=== PATIENT | female | born 1960 | race Caucasian/White ===

== ENCOUNTER 2018-10-31 13:20 | Outpatient (CLI) | payer OTHER | END 2018-10-31 13:21 | disposition home or self-care (01) | LOC: BICMAMMO 13:20 | PROVIDERS: ATTEND Family Medicine | DX: Z12.31 Encounter for screening mammogram for malignant neoplasm of breast (principal) | CPT/HCPCS: 77063; 77067 ==

== ENCOUNTER 2019-06-05 14:00 | Outpatient (CLI) | payer OTHER | END 2019-06-05 14:01 | disposition home or self-care (01) | LOC: DTY/OP 14:00 | PROVIDERS: ATTEND Surgery | DX: E66.01 Morbid (severe) obesity due to excess calories (principal) | CPT/HCPCS: 97802 ==

== ENCOUNTER 2019-07-02 12:44 | Outpatient (CLI) | payer OTHER | END 2019-07-02 12:45 | disposition home or self-care (01) | LOC: DTY/OP 12:44 | PROVIDERS: ATTEND Internal Medicine | DX: E66.01 Morbid (severe) obesity due to excess calories (principal) | CPT/HCPCS: 97802 ==

== ENCOUNTER 2019-07-17 08:23 | Outpatient (CLI) | payer OTHER ==
--- NOTE | 2019-07-17 09:40 | BD ---
DEXA SCAN: DATE: 07/17/2019. PROVIDED CLINICAL HISTORY: Postmenopausal screening. FINDINGS: Lumbar Spine: BMD (g/cm2) L1 0.916 T-Score: -0.7 L2 1.106 T-Score: 0.7 L3 1.100 T-Score: 0.1 L4 1.079 T-Score: 0.2 L1-L4 1.056 T-Score: 0.1 Femoral Neck: 0.710 T-Score: -1.2 Total Femur: 0.961 T-Score: 0.2 Impression: Calculated bone mineral density meets WHO criteria for osteopenia in the left femoral neck and places the patient at increased risk for a fracture. POS: TPC
== END 2019-07-17 08:24 | disposition home or self-care (01) ==
LOC: BICMAMMO 08:23
PROVIDERS: ATTEND Internal Medicine Gastroenterology
DX: Z13.820 Encounter for screening for osteoporosis (principal); K90.0 Celiac disease; K52.9 Noninfective gastroenteritis and colitis, unspecified; E66.9 Obesity, unspecified; M85.852 Other specified disorders of bone density and structure, left thigh
CPT/HCPCS: 77080

== ENCOUNTER 2019-08-04 10:46 | Outpatient (CLI) | payer OTHER | END 2019-08-04 10:47 | disposition home or self-care (01) | LOC: DTY/OP 10:46 | PROVIDERS: ATTEND Internal Medicine | DX: E66.01 Morbid (severe) obesity due to excess calories (principal) | CPT/HCPCS: 97802 ==

== ENCOUNTER 2019-09-09 10:15 | Outpatient (CLI) | payer OTHER | END 2019-09-09 10:16 | disposition home or self-care (01) | LOC: DTY/OP 10:15 | PROVIDERS: ATTEND Internal Medicine | DX: E66.01 Morbid (severe) obesity due to excess calories (principal) | CPT/HCPCS: 97802 ==

== ENCOUNTER 2019-09-29 11:30 | Inpatient (IN) | payer OTHER ==
[2019-09-29 11:29] VITALS: BMI 36.4
[2019-10-01] MEDS ORDERED: PROPOFOL 200 MG/20 ML VIAL ONE (10:31)
[2019-10-01] MEDS ORDERED: Glycopyrrolate 0.2 MG/ML 5 ML SYRINGE ONE (10:31)
[2019-10-01] MEDS ORDERED: Rocuronium Bromide 10 MG/ML (10ML VIAL) ONE (10:31)
[2019-10-01] MEDS ORDERED: Metoclopramide HCl 10 MG/2 ML VIAL ONE (10:31)
[2019-10-01] MEDS ORDERED: Esmolol 100 MG/10 ML VIAL ONE (10:31)
[2019-10-01] MEDS ORDERED: Ketorolac Tromethamine 30 MG/ML VIAL ONE (10:31)
[2019-10-01] MEDS ORDERED: Ondansetron PF 4 MG/2 ML Vial ONE (10:31)
[2019-10-01] MEDS ORDERED: Lidocaine 1% PF 5 ML VIAL ONE (10:31)
[2019-10-01] MEDS ORDERED: Dexamethasone 20 MG/5 ML VIAL ONE (10:31)
[2019-10-01] MEDS ORDERED: Heparin 5,000 UNITS/ML VIAL ONE (11:06)
[2019-10-01] MEDS ORDERED: Bupivacaine PF 0.5% 30 ML VIAL ONE (12:20)
[2019-10-01] MEDS ORDERED: Famotidine/PF 20 mg/2ml Vial ONE (12:25)
[2019-10-01] MEDS ORDERED: Fentanyl 100 MCG/2 ML VIAL ONE ×2 (12:25→16:26)
[2019-10-01] MEDS ORDERED: hydrALAZINE 20 MG/ML VIAL ONE (13:39)
[2019-10-01] MEDS ORDERED: Labetalol HCl 100 MG/20 ML VIAL ONE (15:29)
[2019-10-01] MEDS ORDERED: Meperidine HCl/PF 25 MG/ML VIAL SLOW IVP PRN (15:33)
[2019-10-01] MEDS ORDERED: Ondansetron HCl/PF 4 MG/2 ML Vial IVP PRN (15:33)
[2019-10-01] MEDS ORDERED: diphenhydrAMINE 50 MG/ML VIAL IVP PRN ×2 (16:08→17:18)
[2019-10-01] MEDS ORDERED: Ondansetron PF 4 MG/2 ML Vial IVP PRN ×2 (16:08→17:18)
[2019-10-01] MEDS ORDERED: diphenhydrAMINE 50 MG/ML VIAL IM PRN (16:08)
[2019-10-01] MEDS ORDERED: diphenhydrAMINE 25 MG CAP PO PRN (16:08)
[2019-10-01] MEDS ORDERED: Naloxone HCl 0.4 mg/ml Vial IV PRN (16:08)
[2019-10-01] MEDS ORDERED: Promethazine HCl 25 MG/ML VIAL IM PRN ×2 (16:08→17:18)
[2019-10-01] MEDS ORDERED: fentaNYL Citrate/PF 2,000 MCG in Sodium Chloride 0.9% 60 ML IV PRN (16:08)
[2019-10-01] MEDS ORDERED: Zolpidem Tartrate 5 MG TAB PO PRN (16:08)
[2019-10-01] MEDS ORDERED: Communication Order-Pharmacy FS PRN (16:15)
[2019-10-01] MEDS: Sodium Chloride 0.9% 1,000 ML IV SCH ×2 (17:00→23:42)
[2019-10-01] MEDS ORDERED: hydrALAZINE 20 MG/ML VIAL SLOW IVP PRN (17:18)
[2019-10-01] MEDS ORDERED: Dextrose 50% Abboject 50 ML SYRINGE SLOW IVP PRN (17:18)
[2019-10-01] MEDS ORDERED: Dextrose 5% in Water 1,000 ML IV PRN (17:18)
[2019-10-01] MEDS ORDERED: Hydrocodone-Acetamin 15 ML UDCUP PO PRN (17:18)
[2019-10-01] MEDS: Acetaminophen 1,000 MG in Premix Bag 1 BAG IVPB SCH ×2 (18:31→23:39)
[2019-10-01] MEDS: HumaLOG 300 UNITS/3 ML VIAL SC PRN ×2 (18:39→23:48)
[2019-10-01] MEDS: Enoxaparin Sodium 40 MG/0.4 ML SYRINGE SC SCH (19:59)
--- NOTE | 2019-10-01 20:16 | OP ---
DATE OF PROCEDURE: 10/01/2019 PREOPERATIVE DIAGNOSES: 1. Morbid obesity. 2. Hypertension. 3. Diabetes mellitus type. 4. History of gastroesophageal reflux disease. POSTOPERATIVE DIAGNOSES: 1. Morbid obesity. 2. Hypertension. 3. Diabetes mellitus type. 4. History of gastroesophageal reflux disease. PROCEDURES PERFORMED: 1. Laparoscopic Virgen-en-Y gastric bypass, 100 cm. 2. Esophagogastroduodenoscopy. ANESTHESIA: General. ESTIMATED BLOOD LOSS: 150 mL. COMPLICATIONS: None. SPECIMENS: None. POSTOPERATIVE FINDINGS: Include normal EGD. DESCRIPTION OF PROCEDURE: The operating was taken to the operating room and laid supine on the operating room table. After general anesthetic was obtained, bilateral arms and legs were double strapped to bariatric table. The abdomen was prepped and draped in a sterile fashion. Left subcostal 5 mm Optiview trocar was placed in usual fashion. High-flow pneumoperitoneum was obtained. Left and right abdominal 12 mm ports as well as right subcostal 12 mm port were all placed under direct visualization. A 12 mm port was switched out at the left subcostal port, 5 mm incision made at the xiphoid. Then, Alyson was used to raise the liver off the GE junction. The omentum was split to the transverse colon. The transverse colon mesentery was lifted up exposing the ligament of Treitz, 20 cm was marched distally from the ligament of Treitz and a stapler was fired across the small intestine. The LigaSure was used to form an ischemic blue end on the distal. A distance from this area, 100 cm distal, was then marched. There were some interloop adhesions of the small bowel that had to be taken down sharply in this area without injury, at a distance of 100 cm down, an enterotomy was made and a [id number] anastomosis was performed with the afferent limb proximally and this loop distally. The common enterotomy was closed transversely using a reload of the stapler. The mesentery was closed using an interrupted Vicryl suture, the mesenteric defect. The Virgen limb reached up across the transverse mesocolon under no tension. The patient had previous lap band and lap band removal. There were some adhesions in the upper abdomen. The angle of His was taken down bluntly. Area for transverse staple line was found in the proximal lesser curve of stomach. In this area, a window was made into the lesser sac posteriorly. A laparoscopic stapler was fired transversely across at this point. Gastrotomy was made on the distal greater curve and the anvil for the 25 EEA was brought out through one of the port sites placed up into the stomach. The band passer was used to pass the anvil up just above the above-mentioned staple line. This gastrotomy was then closed using 2 loads of [place] stapler. Pouch was then formed by stapling around the anvil all the way up to the angle of His. The stomach was completely at the top from the remnant stomach. The sharp pin was brought out off the anvil and removed from the abdomen. The Virgen limb was brought up and the end was opened. The 25 EEA stapler base was brought into the left subcostal and passed into the intestine. The sharp pin was brought down on a mesenteric surface of the intestine proximally. This was connected to the anvil from above and the anastomosis was formed. The resultant blue end excess small bowel was stapled off at the level of the gastrojejunostomy. EGD scope was passed through the esophagus, stomach, and into the intestine with no air leakage through the staple line. The staple line was oversewn using Vicryl suture. No ongoing bleeding in the abdomen. The Alyson retractor was removed under direct visualization. All port sites were infiltrated using local anesthetic. All port sites were closed using GraNee needle and 0 Vicryl ties and all ports were removed with no bleeding. All incisions were irrigated copiously including the left subcostal where the small intestine components were removed and all closed using 4-0 Monocryl and Dermabond. The patient was sent to Recovery in stable condition. All instrument counts, needle counts, and lap counts were correct. Job ID: [id number]
[2019-10-02] MEDS: Acetaminophen 1,000 MG in Premix Bag 1 BAG IVPB SCH ×2 (05:10→13:11)
[2019-10-02] MEDS: HumaLOG 300 UNITS/3 ML VIAL SC PRN (05:14)
[2019-10-02 05:39] LABS: #Basophils 0.1 thou/uL (0.0-0.2); #Neutrophils 11.1 thou/uL (1.40-6.50); %Basophils 0.4 % (0.0-1.0); %Eosinophils 0.1 % (0.0-10.0); %Monocytes 6.8 % (0.0-10.0); %Neutrophils 78.6 % (42.0-75.0); Hemoglobin 10.5 g/dL (12.0-16.0); Mean Corpuscular HGB CONC 33.4 g/dL (32.0-36.0); Mean Corpuscular Hemoglobin 31.5 pg (27.0-31.0); Mean Corpuscular Volume 94.3 fL (78.0-98.0); Platelet Count 261 thou/uL (130-400); RBC Distribution Width 11.9 % (11.5-14.5); Red Blood Cell (RBC) Count 3.33 mill/uL (4.20-5.40); White Blood Cell (WBC) Count 14.1 thou/uL (4.8-10.8)
[2019-10-02 06:05] LABS: Anion Gap 13 mmol/L (10-20); BUN (Urea Nitrogen) 14 mg/dL (9.8-20.1); Calc. Creatinine Clearance 93 mL/min (70-130); Calcium 8.1 mg/dL (7.8-10.44); Carbon Dioxide 21 mmol/L (23-31); Chloride 104 mmol/L (98-107); Estimated GFR-MDRD 56; Glucose 302 mg/dL (80-115); Potassium 5.9 mmol/L (3.5-5.1); Sodium 132 mmol/L (136-145)
[2019-10-02] MEDS: Losartan 25 MG TAB PO SCH (08:09)
[2019-10-02] MEDS: Pantoprazole 40 MG VIAL IVP SCH (08:10)
[2019-10-02] MEDS ORDERED: FLU VACC QS2019-20(6MOS UP)/PF 60 MCG/0.5 ML SYRINGE IM ONE (09:00)
[2019-10-02] MEDS ORDERED: Dextrose 50 % In Water 50 ML SYRINGE IV PRN (09:13)
[2019-10-02] MEDS ORDERED: Dextrose 5% in Water 1,000 ML IV PRN (09:13)
--- NOTE | 2019-10-02 09:51 | PDOC.GSPN ---
Surgery Progress Note: Subj - Subjective Narrative: c/o bloating, no nausea, ambulating Surgery Progress Note: Obj - Vital signs Vital signs: Vital Signs - Most Recent Temp Pulse Resp BP Pulse Ox 97.8 F 91 20 94/63 93 L 10/02/19 07:34 10/02/19 07:34 10/02/19 07:34 10/02/19 07:34 10/02/19 07:34 - Physical Exam General: no distress Abdomen: soft, appropriately tender Wound: healing well Surgery Progress Note: Results - Labs Result Diagrams: 10/02/19 04:53 10/02/19 04:53 Lab results: Laboratory Results - last 24 hr 10/01/19 10/02/19 10/02/19 23:49 04:53 04:53 WBC 14.1 H RBC 3.33 L Hgb 10.5 L Hct 31.4 L MCV 94.3 MCH 31.5 H MCHC 33.4 RDW 11.9 Plt Count 261 MPV 9.0 Neutrophils % 78.6 H Lymphocytes % 14.0 L Monocytes % 6.8 Eosinophils % 0.1 Basophils % 0.4 Neutrophils # 11.1 H Lymphocytes # 2.0 Monocytes # 1.0 H Eosinophils # 0.0 Basophils # 0.1 Sodium 132 L Potassium 5.9 H Chloride 104 Carbon Dioxide 21 L Anion Gap 13 BUN 14 Creatinine 1.00 Estimated GFR (MDRD) 56 Glucose 302 H POC Glucose 281 H Calcium 8.1 10/02/19 05:15 WBC RBC Hgb Hct MCV MCH MCHC RDW Plt Count MPV Neutrophils % Lymphocytes % Monocytes % Eosinophils % Basophils % Neutrophils # Lymphocytes # Monocytes # Eosinophils # Basophils # Sodium Potassium Chloride Carbon Dioxide Anion Gap BUN Creatinine Estimated GFR (MDRD) Glucose POC Glucose 300 H Calcium Surgery Progress Note: A/P - Problem (1) Morbid obesity Current Visit: Yes Code(s): E66.01 - MORBID (SEVERE) OBESITY DUE TO EXCESS CALORIES Status: Acute - Plan Plan: POD 1 gastric bypass -recheck K, was 5.9 -DC after lunch today if doing well DC NOTE dx morbid obesity, DM, HTN stable f/u 2 weeks rx's already sent to pharmacy
[2019-10-02] MEDS: Insulin Regular 300 UNITS/3 ML VIAL SC PRN (12:39)
[2019-10-02] MEDS: Sodium Chloride 0.9% 1,000 ML IV SCH ×2 (12:44→20:08)
[2019-10-02] MEDS ORDERED: Calcium Gluc 4.6 MEQ/10 ML (100 MG/ML) SLOW IVP SCH (13:30)
[2019-10-02] MEDS: Enoxaparin Sodium 40 MG/0.4 ML SYRINGE SC SCH (19:22)
[2019-10-02] MEDS: Hydrocodone-Acetamin 15 ML UDCUP PO PRN (20:07)
[2019-10-03] MEDS: Insulin Regular 300 UNITS/3 ML VIAL SC PRN ×2 (00:13→05:55)
[2019-10-03] MEDS: Hydrocodone-Acetamin 15 ML UDCUP PO PRN ×2 (04:00→10:26)
[2019-10-03] MEDS: Sodium Chloride 0.9% 1,000 ML IV SCH (04:01)
[2019-10-03 05:34] LABS: #Basophils 0.1 thou/uL (0.0-0.2); #Eosinphils 0.1 thou/uL (0.0-0.7); #Lymphocytes 3.3 thou/uL (1.20-3.40); #Neutrophils 6.7 thou/uL (1.40-6.50); %Basophils 0.5 % (0.0-1.0); %Eosinophils 1.1 % (0.0-10.0); %Lymphocytes 29.1 % (21.0-51.0); %Neutrophils 60.3 % (42.0-75.0); Hemoglobin 7.5 g/dL (12.0-16.0); Mean Corpuscular HGB CONC 33.6 g/dL (32.0-36.0); Mean Corpuscular Hemoglobin 31.5 pg (27.0-31.0); Mean Corpuscular Volume 93.8 fL (78.0-98.0); Mean Platelet Volume 8.7 fL (7.4-10.4); Platelet Count 196 thou/uL (130-400); Red Blood Cell (RBC) Count 2.37 mill/uL (4.20-5.40); White Blood Cell (WBC) Count 11.1 thou/uL (4.8-10.8)
[2019-10-03] MEDS: Pantoprazole 40 MG VIAL IVP SCH (08:14)
[2019-10-03] MEDS: Losartan 25 MG TAB PO SCH (08:17)
[2019-10-03 14:29] LABS: Hemoglobin 7.6 g/dL (12.0-16.0)
[2019-10-03 15:22] VITALS: BP 103/71; TEMP 99.4
--- NOTE | 2019-10-05 14:24 | EKG ---
Test Reason : Blood Pressure : / mmHG Vent. Rate : 084 BPM Atrial Rate : 084 BPM P-R Int : 126 ms QRS Dur : 078 ms QT Int : 320 ms P-R-T Axes : 026 -11 040 degrees QTc Int : 378 ms Sinus rhythm with occasional Premature ventricular complexes Minimal voltage criteria for LVH, may be normal variant Nonspecific T wave abnormality Abnormal ECG When compared with ECG of 12-JUN-2016 09:08, Premature ventricular complexes are now Present Nonspecific T wave abnormality, worse in Lateral leads Confirmed by JOSE GARDINER (2) on 10/05/2019 2:24:14 PM Referred By: KIKI Confirmed By:JOSE GARDINER
== END 2019-10-03 15:55 | disposition home or self-care (01) | DRG 621 ==
LOC: SURG A 10-01 10:19
PROVIDERS: ADMIT Surgery; ATTEND Surgery
PROC: 0D164ZA Bypass Stomach to Jejunum, Percutaneous Endoscopic Approach (ICD-10-PCS; principal; 2019-10-01)
PROC: 0DJ08ZZ Inspection of Upper Intestinal Tract, Via Natural or Artificial Opening Endoscopic (ICD-10-PCS; 2019-10-01)
DX: E66.01 Morbid (severe) obesity due to excess calories (principal); Z96.642 Presence of left artificial hip joint; I10 Essential (primary) hypertension; E78.5 Hyperlipidemia, unspecified; J45.909 Unspecified asthma, uncomplicated; G47.30 Sleep apnea, unspecified; K76.0 Fatty (change of) liver, not elsewhere classified; E03.9 Hypothyroidism, unspecified; F32.9 Major depressive disorder, single episode, unspecified; E11.9 Type 2 diabetes mellitus without complications; K21.9 Gastro-esophageal reflux disease without esophagitis; F41.9 Anxiety disorder, unspecified; Z90.710 Acquired absence of both cervix and uterus; Z79.51 Long term (current) use of inhaled steroids; Z68.36 Body mass index [BMI] 36.0-36.9, adult; Z79.84 Long term (current) use of oral hypoglycemic drugs; Z79.890 Hormone replacement therapy; Z79.899 Other long term (current) drug therapy
CPT/HCPCS: 36415; 36416; 80048; 85025; 90471; 90686; 90732; 93005; 93010; 94760; C9113; G0008; G0009; J0131; J0360; J0690; J1100; J1644; J1650; J1815; J1885; J2001; J2405; J2704; J2765; J3010; S0020; S0028

== ENCOUNTER 2019-11-28 14:59 | Outpatient (CLI) | payer OTHER ==
--- NOTE | 2019-11-28 15:53 | ULT ---
GALLBLADDER ULTRASOUND: HISTORY: Right upper quadrant abdominal pain, back pain and nausea FINDINGS: The liver demonstrates increased echotexture without focal mass or intrahepatic biliary ductal dilata tion. There is focal sparing adjacent to the gallbladder. No gallstones, gallbladder wall thickening or pericholecystic fluid are seen. The right kidney and visualized portions of the pancreas are normal. The common duct [id number] in diameter. No free fluid is seen in the Miller's pouch. IMPRESSION: 1. Fatty liver 2. No evidence of cholelithiasis
== END 2019-11-28 15:00 | disposition home or self-care (01) ==
LOC: SCSULT 14:59
PROVIDERS: ATTEND Surgery
DX: R10.11 Right upper quadrant pain (principal); K76.0 Fatty (change of) liver, not elsewhere classified
CPT/HCPCS: 76705

== ENCOUNTER 2020-01-19 05:33 | Emergency (ER) | payer OTHER ==
[2020-01-19] MEDS ORDERED: Dexamethasone 10 MG/ML VIAL ONE (09:14)
[2020-01-19] MEDS ORDERED: Sucralfate 1 GM/10 ML UDCUP ONE (09:14)
== END 2020-01-19 10:18 | disposition home or self-care (01) ==
LOC: ERS 05:33
DX: K20.9 Esophagitis, unspecified (principal); J02.9 Acute pharyngitis, unspecified; E11.9 Type 2 diabetes mellitus without complications; E03.9 Hypothyroidism, unspecified; F32.9 Major depressive disorder, single episode, unspecified; Z79.84 Long term (current) use of oral hypoglycemic drugs; Z79.899 Other long term (current) drug therapy
CPT/HCPCS: 99283; J1100

== ENCOUNTER 2020-09-02 10:19 | Outpatient (CLI) | payer OTHER ==
--- NOTE | 2020-09-02 11:04 | MMO ---
Bilateral MAMMO Bilat Screen [facility]. CLINICAL HISTORY: Patient is 60 years old and is seen for screening. The patient has no family history of breast cancer. The patient has no personal history of cancer. VIEWS: The views performed were: bilateral craniocaudal with tomosynthesis and bilateral mediolateral oblique with tomosynthesis. FILMS COMPARED: The present examination has been compared to prior imaging studies performed at [facility] on 02/17/2016 and 10/31/2018, and at [facility] on 10/23/2013. This study has been interpreted with the assistance of computer-aided detection. MAMMOGRAM FINDINGS: The breasts are almost entirely fat. There are no suspicious masses, suspicious calcifications, or new areas of architectural distortion. IMPRESSION: THERE IS NO MAMMOGRAPHIC EVIDENCE OF MALIGNANCY. A ROUTINE FOLLOW-UP MAMMOGRAM IN 1 YEAR IS RECOMMENDED. THE RESULTS OF THIS EXAM WERE SENT TO THE PATIENT. ACR BI-RADS Category 1 - Negative MAMMOGRAPHY NOTE: 1. A negative mammogram report should not delay a biopsy if a dominant of clinically suspicious mass is present. 2. Approximately 10% to 15% of breast cancers are not detected by mammography. 3. Adenosis and dense breasts may obscure an underlying neoplasm. Reported by: JONNIE ROSARIO MD Electonically Signed: [id number]
== END 2020-09-02 10:20 | disposition home or self-care (01) ==
LOC: BICMAMMO 10:19
PROVIDERS: ATTEND Family Medicine
DX: Z12.31 Encounter for screening mammogram for malignant neoplasm of breast (principal)
CPT/HCPCS: 77063; 77067

== ENCOUNTER 2025-09-25 15:04 | Outpatient (CLI) | payer BC | END 2025-09-25 15:05 | disposition home or self-care (01) | LOC: BICRAD 15:04 | PROVIDERS: ATTEND Internal Medicine | DX: M25.512 Pain in left shoulder (principal); M19.012 Primary osteoarthritis, left shoulder ==